=== PATIENT | male | born 1980 | race Caucasian/White ===

== ENCOUNTER 2016-09-02 11:41 | Emergency (ER) | payer MEDICAID, OTHER ==
[~2016-09-02] VITALS: Ht 180.3 cm; Wt 82.0 kg
[~2016-09-02 11:41] MED LIST: PARO20 PO; PARO40TA PO
[2016-09-02 11:43] VITALS: BP 126/83; PULSE 56; RESP 16; TEMP 98.4; O2SAT 99
[2016-09-02] MEDS ORDERED: PROZ20CA11 PO (11:49)
[2016-09-02] MEDS ORDERED: PRIL20CA9 PO (11:49)
[2016-09-02] MEDS ORDERED: KETOROLAC TROMETHAMINE 60 MG/2 ML (IM) VIAL IM ONE (12:00)
[2016-09-02] MEDS ORDERED: CLINDAMYCIN PHOS 600 MG/4 ML VIAL IM ONE (12:00)
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
[2016-09-02 13:05] VITALS: RESP 14
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
[2016-09-02] MEDS ORDERED: IBUP-232 PO (13:57)
[2016-09-02] MEDS ORDERED: AMOX875T PO (13:57)
== END 2016-09-02 14:05 | disposition home or self-care (01) ==
LOC: PHEFT 11:41
DX: S02.609A Fracture of mandible, unspecified, initial encounter for closed fracture (principal); K04.7 Periapical abscess without sinus; F17.200 Nicotine dependence, unspecified, uncomplicated; Z86.59 Personal history of other mental and behavioral disorders; W50.0XXA Accidental hit or strike by another person, initial encounter
CPT/HCPCS: 70140; 96372; 99283; J1885

== ENCOUNTER 2016-09-29 14:57 | Emergency (ER) | payer OTHER ==
[~2016-09-29] VITALS: Ht 180.3 cm; Wt 78.1 kg
[~2016-09-29 14:57] MED LIST changes: +AMOX875T PO; +IBUP-232 PO; -PARO20 PO; -PARO40TA PO; +PRIL20CA9 PO; +PROZ20CA11 PO
[2016-09-29 15:03] VITALS: BP 130/79; PULSE 69; RESP 16; TEMP 98.1; O2SAT 95
[2016-09-29] MEDS ORDERED: OMEP20TA PO (15:13)
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
[2016-09-29 15:40] LABS: BASOPHIL % 0.3 % (0.0-2.0); EOSINOPHIL # 0.4 TH/MM3 (0-0.4); EOSINOPHIL % 3.8 % (0.0-4.0); HEMATOCRIT 43.5 % (39.0-51.0); HEMO FLAGS DIFF FINAL; LYMPH % 19.6 % (9.0-44.0); LYMPHOCYTE # 1.9 TH/MM3 (1.0-4.8); MEAN CELL VOLUME 93.4 FL (80.0-100.0); MEAN CORPUSCULAR HEMOGLOBIN 31.7 PG (27.0-34.0); MEAN CORPUSCULAR HGB CONC 33.9 % (32.0-36.0); MONO % 6.5 % (0.0-8.0); NEUT % 69.8 % (16.0-70.0); PLATELET COUNT 224 TH/MM3 (150-450); RED BLOOD COUNT 4.66 MIL/MM3 (4.50-5.90); RED CELL DISTRIBUTION WIDTH 12.2 % (11.6-17.2); WHITE BLOOD COUNT 9.9 TH/MM3 (4.0-11.0)
[2016-09-29] MEDS ORDERED: IOHEXOL 350 MG/ML 10 ML VIAL (for RAD DIAG) IV ONE (15:47)
[2016-09-29 16:06] LABS: CHLORIDE 108 MEQ/L (98-107); POTASSIUM 4.4 MEQ/L (3.5-5.1); SODIUM (NA) 142 MEQ/L (136-145)
[2016-09-29 16:09] LABS: ANION GAP 8 MEQ/L (5-15); BICARBONATE 26.3 MEQ/L (21.0-32.0)
[2016-09-29 16:10] LABS: BLOOD UREA NITROGEN 14 MG/DL (7-18)
[2016-09-29 16:12] LABS: ALT (GPT) 25 U/L (12-78); AST (GOT) 20 U/L (15-37)
[2016-09-29 16:13] LABS: GLOMERULAR FILTRATION RATE 89 ML/MIN (>89)
[2016-09-29 16:14] LABS: TOTAL BILIRUBIN ADULT 0.5 MG/DL (0.2-1.0)
[2016-09-29 16:15] LABS: ALKALINE PHOSPHATASE 112 U/L (45-117)
--- NOTE | 2016-09-29 16:17 | RADHPO ---
EXAM DATE/TIME: 09/29/2016 15:33 [facility] COMPARISON: No previous studies available for comparison. INDICATIONS : Right jaw pain and swelling. Evaluate for infection. IV CONTRAST: 70 cc Omnipaque 350 (iohexol) IV RADIATION DOSE: 29.97 CTDIvol (mGy) MEDICAL HISTORY : Gastroesophageal reflux disease. Fractured right mandible. SURGICAL HISTORY : None. ENCOUNTER: Initial ACUITY: 2 days PAIN SCALE: 7/10 LOCATION: Right facial TECHNIQUE: Volumetric scanning of the facial bones was performed. Using automated exposure control and adjustme nt of the mA and/or kV according to patient size, radiation dose was kept as low as reasonably achiev able to obtain optimal diagnostic quality images. FINDINGS: The examination demonstrates a comminuted fracture through the anterior aspect of the right side of t he mandible. The fracture is nondisplaced. The soft tissue windowed images demonstrate soft tissue sw elling diffusely along the fracture of the right side the mandible. No definite drainable abscess col lection is seen. There is a mildly displaced nasal bone fracture. The orbits are intact. The zygoma are intact bilaterally. The vertical plate of the ethmoid is intact . The sinuses are clear. CONCLUSION: 1. Nondisplaced, comminuted fracture involving the anterior right side of the mandible. 2. Mildly displaced nasal bone fracture. 3. Soft tissue swelling along the right side the patient's mandible adjacent to the fracture. No defi nite drainable abscess collection is seen. Faraz Blair MD on September 29, 2016 at 16:06 Board Certified Radiologist. This report was verified electronically.
[2016-09-29] MEDS ORDERED: CLINDAMYCIN PHOS 900 MG/6 ML VIAL IM ONE (16:30)
[2016-09-29] MEDS ORDERED: CLIN1CAP5 PO (16:30)
[2016-09-29] MEDS ORDERED: CLINDAMYCIN INJ 600 MG in SODIUM CHLORIDE 0.9% INJ 100 ML IV ONE (16:45)
== END 2016-09-29 17:35 | disposition home or self-care (01) ==
LOC: PHEFT 14:57
DX: S02.609D Fracture of mandible, unspecified, subsequent encounter for fracture with routine healing (principal); Y04.2XXD Assault by strike against or bumped into by another person, subsequent encounter
CPT/HCPCS: 70487; 80053; 85025; 96365; 99285; Q9967